=== PATIENT | male | born 1985 | race Caucasian/White ===

== ENCOUNTER 2022-01-13 23:34 | Outpatient (CLI) | payer SELFPAY | END 2022-01-13 23:35 | disposition critical access hospital (66) | LOC: EMS 23:34 | DX: R11.10 Vomiting, unspecified (principal); R45.1 Restlessness and agitation | CPT/HCPCS: A0425; A0427 ==

== ENCOUNTER 2022-01-13 23:54 | Emergency (ER) | payer SELFPAY ==
[2022-01-14] MEDS ORDERED: ONDANSETRON 4 MG/2 ML VIAL IVP STA (00:04)
[2022-01-14] MEDS ORDERED: SODIUM CHLORIDE 0.9% 1,000 ML IV STA (00:04)
[2022-01-14] MEDS ORDERED: FAMOTIDINE 20 MG/2 ML VIAL IVP STA (00:04)
[2022-01-14] MEDS ORDERED: BUPRENORPHINE 0.3 MG/ML VIAL IVP ONE ×2 (00:04→00:38)
--- NOTE | 2022-01-14 00:09 | ED Physician Documentation ---
PD HPI NVD - Stated complaint Stated Complaint: VOMITING/NAUSEA, ANXIETY S/P DETOXING - Chief complaint Chief Complaint: General - History obtained from History obtained from: Patient, EMS, Caregiver (detox center) - History of Present Illness Timing - onset: Yesterday Timing - duration: Days (04/30) Timing - details: Gradual onset, Still present Associated symptoms: Abdominal pain (cramping upper abdomen), Loss of appetite. No: Fever, Chest pain, Near syncope / syncope Contributing factors: Other (fentanyl addiction and is at [facility] for detox. Arrived yesterday and had nuasea and vomiting that has persisted despite attempts at PO meds. Was taking suboxone 8mg films BID. Missed those due to vomi ting yesterday. Last Fentanyl use was Saturday AM.). No: Sick contact, Bad food, Alcohol use Improved by: No: Vomiting Worsened by: Eating Recently seen: Clinic (intake at [facility] yesterday (Saturday) and been there the past 1 1/2 days.) Review of Systems Constitutional: denies: Fever, Chills Cardiac: denies: Chest pain / pressure Respiratory: denies: Dyspnea, Cough GI: reports: Nausea, Vomiting. denies: Abdominal Pain, Diarrhea Musculoskeletal: denies: Neck pain, Back pain Neurologic: denies: Generalized weakness, Near syncope, Headache PD PAST MEDICAL HISTORY - Past Medical History Cardiovascular: None Respiratory: None Endocrine/Autoimmune: None - Present Medications Home Medications: Ambulatory Orders Medication Instructions Recorded Confirmed Benzocaine [Hurricaine] 1 each MM QID 01/14/22 01/14/22 Buprenorphine HCl/Naloxone HCl 1 each SL DAILY 01/14/22 01/14/22 [Buprenorphine-Nalox 8-2Mg Film] Clonidine HCl [Clonidine HCl ER] 0.1 mg PO Q4HR 01/14/22 01/14/22 Dicyclomine [Bentyl] 10 mg PO QID 01/14/22 01/14/22 Gabapentin [Neurontin] 300 mg PO TID 01/14/22 01/14/22 Lorazepam [Ativan] 2 mg PO PRN PRN 01/14/22 01/14/22 Naloxone HCl [Narcan] 4 mg NS PRN PRN 01/14/22 01/14/22 Ondansetron HCl 4 mg PO PRN PRN 01/14/22 01/14/22 Promethazine [Phenergan] 12.5 tab PO PRN PRN 01/14/22 01/14/22 hydrOXYzine HCL [Hydroxyzine HCl] 50 mg PO Q6HR 01/14/22 01/14/22 methocarbamoL [Methocarbamol] 750 mg PO Q6HR 01/14/22 01/14/22 traZODone [Desyrel] 50 mg PO PRN PRN 01/14/22 01/14/22 - Allergies Allergies/Adverse Reactions: Allergies Allergy/AdvReac Type Severity Reaction Status Date / Time No Known Drug Allergies Allergy Verified 01/14/22 00:02 - Living Situation Living Arrangement: reports: At home - Social History Does the pt smoke?: Yes Does the pt have substance abuse?: Yes Substance Use and Type: Other (fentanyl) PD ED PE NORMAL - Vitals Vital signs reviewed: Yes - General General: Alert and oriented X 3, Well developed/nourished, Other (tremorous, conversant, appears dryheaving. ) - HEENT HEENT: Pharynx benign. No: Moist mucous membranes - Neck Neck: Supple, no meningeal sign, No adenopathy - Cardiac Cardiac: RRR, No murmur - Respiratory Respiratory: Clear bilaterally - Abdomen Abdomen: Soft, Non distended, No organomegaly, Other (mild tender wthout guarding in epigastric area). No: Normal bowel sounds (somewhat hyperactive) - Male Male : Deferred - Rectal Rectal: Deferred - Back Back: No spinal TTP - Derm Derm: Warm and dry. No: Normal color (mildly pale) - Extremities Extremities: No deformity, No tenderness to palpate - Neuro Neuro: Alert and oriented X 3, No motor deficit, Normal speech Eye Opening: Spontaneous Motor: Obeys Commands Verbal: Confused GCS Score: 14 Results - Vitals Vitals: Vital Signs - 24 hr 01/13/22 01/14/22 01/14/22 23:59 02:01 03:02 Temperature 37.3 C Heart Rate 95 75 76 Respiratory 18 18 16 Rate Blood Pressure 127/107 H 108/91 H 118/74 O2 Saturation 97 100 100 01/14/22 01/14/22 04:28 05:20 Temperature 37 C Heart Rate 86 63 Respiratory 18 16 Rate Blood Pressure 109/69 112/63 O2 Saturation 98 98 Oxygen O2 Source Room air - Labs Labs: Laboratory Tests 01/14/22 01/14/22 00:10 00:10 WBC 11.2 H RBC 4.27 L Hgb 13.0 L Hct 37.0 L MCV 86.7 MCH 30.4 MCHC 35.1 RDW 11.3 L Plt Count 218 MPV 9.0 Neut # (Auto) 9.5 H Lymph # (Auto) 1.1 L [place] # (Auto) 0.4 Eos # (Auto) 0.0 Baso # (Auto) 0.0 Absolute Nucleated RBC 0.00 Nucleated RBC % 0.0 Sodium 136 Potassium 3.4 L Chloride 103 Carbon Dioxide 23 Anion Gap 10.0 BUN 19 Creatinine 0.8 Estimated GFR (MDRD) 110 Glucose 123 H Calcium 8.7 Magnesium 1.8 Total Bilirubin 0.6 AST 21 ALT 17 Alkaline Phosphatase 45 Total Protein 6.3 L Albumin 3.9 Globulin 2.4 Albumin/Globulin Ratio 1.6 Lipase 29 Ethyl Alcohol < 5.0 PD MEDICAL DECISION MAKING - ED course Complexity details: re-evaluated patient (feeling improved with IV Zofran and buprenorphine x 2. Famotidine also given. ), considered differential (repetitive vomiting, having fentanyl withdrawal and presume gastritis. Can give meds and IV fluids. ), d/w patient ED course: He was able to relax and rest and sleep. At this point the detox center was able to take him back but not right away being in middle the night; they would send a ride in next 1-2 hours. The patient remained stable here, not vomiting and is comfortable. He is not having any vomiting here. No tremorous. Departure - Departure Disposition: 01 Home, Self Care Clinical Impression: Intractable vomiting with nausea, Dehydration, Fentanyl use disorder, moderate, dependence, Opioid withdrawal Condition: Stable Record reviewed to determine appropriate education?: Yes Comments: Return to the [facility] detox treatment center for resuming your treatment. Discharge Date/Time: 01/14/22 05:20
[2022-01-14 00:17] LABS: BASOPHILS % (AUTO) 0.4 %; EOSINOPHILS % (AUTO) 0.1 %; LYMPHOCYTES # (AUTO) 1.1 10^3/uL (1.5-3.5); LYMPHOCYTES % (AUTO) 10.2 %; MEAN CORPUSCULAR HEMOGLOBIN 30.4 pg (27.0-31.0); MEAN CORPUSCULAR HGB CONC 35.1 g/dL (32.0-36.0); MEAN CORPUSCULAR VOLUME 86.7 fL (80.0-94.0); MONOCYTES # (AUTO) 0.4 10^3/uL (0.0-1.0); MONOCYTES % (AUTO) 3.5 %; NEUTROPHILS # (AUTO) 9.5 10^3/uL (1.5-6.6); NEUTROPHILS % (AUTO) 85.4 %; PLT - PLATELET COUNT 218 10^3/uL (130-450); RED BLOOD COUNT 4.27 10^6/uL (4.70-6.10); RED CELL DISTRIBUTION WIDTH 11.3 % (12.0-15.0); WHITE BLOOD COUNT 11.2 x10^3/uL (4.8-10.8)
[2022-01-14 00:27] LABS: ALBUMIN 3.9 g/dL (3.2-5.5); ALBUMIN/GLOBULIN RATIO 1.6 (1.0-2.2); ALKALINE PHOSPHATASE 45 IU/L (42-121); ALT ALANINE AMINOTRANSFERASE 17 IU/L (10-60); AST ASPARTATE AMINOTRANSFERASE 21 IU/L (10-42); BILIRUBIN,TOTAL 0.6 mg/dL (0.2-1.0); BUN - BLOOD UREA NITROGEN 19 mg/dL (6-20); CALCIUM 8.7 mg/dL (8.5-10.3); CARBON DIOXIDE - CO2 23 mmol/L (21-32); CHLORIDE 103 mmol/L (101-111); CREATININE 0.8 mg/dL (0.6-1.2); ETOH - ETHANOL < 5.0 mg/dL; GFR - MDRD 110 (>89); GLUCOSE 123 mg/dL (70-100); LIPASE 29 U/L (22-51); MAGNESIUM 1.8 mg/dL (1.7-2.8); POTASSIUM 3.4 mmol/L (3.5-5.0); SODIUM 136 mmol/L (135-145); TOTAL PROTEIN 6.3 g/dL (6.7-8.2)
[2022-01-14] MEDS ORDERED: diphenhydrAMINE INJ 50 MG/ML VIAL IVP STA (00:38)
[2022-01-14] MEDS ORDERED: LACTATED RINGERS 1,000 ML IV STA (00:49)
[2022-01-14 05:21] VITALS: BP 112/63
== END 2022-01-14 05:20 | disposition home or self-care (01) ==
LOC: ED 23:54
DX: R11.2 Nausea with vomiting, unspecified (principal); E86.0 Dehydration; F11.23 Opioid dependence with withdrawal; F17.200 Nicotine dependence, unspecified, uncomplicated
CPT/HCPCS: 36415; 80053; 80320; 83690; 83735; 85025; 96361; 96374; 96375; 99284; 99285; J0592; J1200; J7120

== ENCOUNTER 2023-01-10 12:23 | Outpatient (CLI) | payer MEDICAID | END 2023-01-10 12:24 | disposition critical access hospital (66) | LOC: EMS 12:23 | DX: R11.2 Nausea with vomiting, unspecified (principal) | CPT/HCPCS: A0425; A0429; A0999 ==

== ENCOUNTER 2023-01-10 12:49 | Emergency (ER) | payer MEDICAID, OTHER ==
[2023-01-10] MEDS ORDERED: SODIUM CHLORIDE 0.9% 1,000 ML IV STA (12:58)
[2023-01-10] MEDS ORDERED: PROCHLORPERAZINE 10 MG/2 ML VIAL IVP STA (12:58)
[2023-01-10] MEDS ORDERED: BUPRENORPHINE 0.3 MG/ML VIAL IVP ONE (12:59)
--- NOTE | 2023-01-10 13:05 | ED Physician Documentation ---
History of Present Illness - Stated complaint Stated Complaint: N/V - Chief complaint Chief Complaint: Abd Pain - Additonal information Additional information: 37-year-old male presents emergency department via EMS from the local detox facility [facility]. He has been there now for 48 hours for detox from fentanyl. He is being prescribed Suboxone 8 mg 3 times a day. He has been taking Zofran but despite this continues to have nausea and vomiting. No fevers. Denies abdominal pain. Did have a similar visit about 1 year ago. Patient does desire to return to [facility]. Calm and cooperative. Review of Systems Constitutional: denies: Fever, Chills Throat: reports: Reviewed and negative Cardiac: reports: Reviewed and negative Respiratory: reports: Reviewed and negative GI: reports: Nausea, Vomiting. denies: Abdominal Pain Musculoskeletal: reports: Reviewed and negative Neurologic: reports: Reviewed and negative PD PAST MEDICAL HISTORY - Past Medical History Cardiovascular: None Respiratory: None Endocrine/Autoimmune: None Psych: Other - Past Surgical History Past Surgical History: No - Present Medications Home Medications: Ambulatory Orders Medication Instructions Recorded Confirmed Benzocaine [Hurricaine] 1 each MM QID 01/14/22 01/14/22 Buprenorphine HCl/Naloxone HCl 1 each SL DAILY 01/14/22 01/14/22 [Buprenorphine-Nalox 8-2Mg Film] Dicyclomine [Bentyl] 10 mg PO QID 01/14/22 01/14/22 Gabapentin [Neurontin] 300 mg PO TID 01/14/22 01/14/22 Lorazepam [Ativan] 2 mg PO PRN PRN 01/14/22 01/14/22 Naloxone HCl [Narcan] 4 mg NS PRN PRN 01/14/22 01/14/22 Ondansetron HCl 4 mg PO PRN PRN 01/14/22 01/14/22 Promethazine [Phenergan] 12.5 tab PO PRN PRN 01/14/22 01/14/22 cloNIDine HCL [Clonidine HCl ER] 0.1 mg PO Q4HR 01/14/22 01/14/22 hydrOXYzine HCL [Hydroxyzine HCl] 50 mg PO Q6HR 01/14/22 01/14/22 methocarbamoL [Methocarbamol] 750 mg PO Q6HR 01/14/22 01/14/22 traZODone [Desyrel] 50 mg PO PRN PRN 01/14/22 01/14/22 - Allergies Allergies/Adverse Reactions: Allergies Allergy/AdvReac Type Severity Reaction Status Date / Time No Known Drug Allergies Allergy Verified 01/10/23 12:54 - Social History Does the pt smoke?: Yes Smoking Status: Current every day smoker Does the pt drink ETOH?: No Does the pt have substance abuse?: Yes - POLST Patient has POLST: No PD ED PE NORMAL - General General: Alert and oriented X 3, No acute distress, Well developed/nourished - HEENT HEENT: Atraumatic - Neck Neck: Supple, no meningeal sign, No adenopathy - Cardiac Cardiac: RRR, No murmur - Respiratory Respiratory: No respiratory distress, Clear bilaterally - Abdomen Abdomen: Normal bowel sounds, Soft, Non tender - Back Back: No CVA TTP - Derm Derm: Normal color, Warm and dry - Extremities Extremities: No deformity - Neuro Neuro: Alert and oriented X 3, detacker 2-12 intact Eye Opening: Spontaneous Motor: Obeys Commands Verbal: Oriented GCS Score: 15 Results - Vitals Vitals: Vital Signs - 24 hr 01/10/23 12:54 Temperature 37.1 C Heart Rate 90 Respiratory 16 Rate Blood Pressure 130/80 O2 Saturation 99 Oxygen O2 Source Room air - Labs Labs: Laboratory Tests 01/10/23 01/10/23 13:06 13:06 WBC 13.8 H RBC 5.48 Hgb 16.3 Hct 47.2 MCV 86.1 MCH 29.7 MCHC 34.5 RDW 11.9 L Plt Count 277 MPV 9.8 Neut # (Auto) 11.0 H Lymph # (Auto) 1.3 L [place] # (Auto) 1.4 H Eos # (Auto) 0.0 Baso # (Auto) 0.0 Absolute Nucleated RBC 0.00 Nucleated RBC % 0.0 Sodium 135 Potassium 3.3 L Chloride 91 L Carbon Dioxide 34 H Anion Gap 10.0 BUN 27 H Creatinine 0.9 Estimated GFR (MDRD) 95 Glucose 149 H Calcium 10.7 H Total Bilirubin 0.6 AST 17 ALT 16 Alkaline Phosphatase 56 Total Protein 8.0 Albumin 5.4 Globulin 2.6 Albumin/Globulin Ratio 2.1 Lipase 38 PD Medical Decision Making - ED course Complexity details: reviewed results, d/w patient ED course: 37-year-old male was referred to the emergency department from [facility] detox facility for evaluation of uncontrolled nausea and vomiting. Has been there now for 48 hours. Has a history of fentanyl abuse. He was receiving Suboxone 8 mg 3 times a day but continued to have vomiting despite Zofran. Here in the emergency department he was alert and well-appearing. He had no worrisome vital sign abnormalities. Cardiopulmonary exam and abdominal exam were all benign. We did obtain CBC and electrolytes. Per my interpretation mild leukocytosis white count of nearly 14,000. Given the lack of fevers or abdominal pain I think this is likely a stress marginalization. His serum chemistry shows some mild derangement with a potassium of 3.3 as well as a low chloride of 91. This likely due to the vomiting. I did replete his potassium here in the emergency department with 50 mill equivalents. BUN was mildly elevated at 27 and creatinine 0.9. He did receive a liter of IV fluids. His glucose is 149. Given the lack of abdominal pain or fevers I did not feel that advanced imaging was warranted as clinically he does not have a peritoneal or surgical abdomen. Here in the emergency department he received a liter of IV fluids, Compazine and 0.3 mg of buponephrine. On reevaluation his nausea and vomiting has abated. He is now tolerating sips of clear liquids and crackers and feels ready for discharge back to [facility]. Departure - Departure Disposition: 01 Home, Self Care Clinical Impression: Mild fentanyl abuse in early remission, Hypokalemia Nausea and vomiting Qualifiers: Vomiting type: unspecified Qualified Code(s): R11.2 - Nausea with vomiting, unspecified Condition: Stable Record reviewed to determine appropriate education?: Yes Comments: Taras pritchard are seen today in the emergency department for uncontrolled nausea and vomiting since entering detox at [facility]. This is likely side effect of your detox and withdrawals. Here in the emergency department your labs showed mildly low potassium and c hloride this is due to the vomiting. We did give you extra potassium here. We also gave you some IV fluids, Compazine and nausea medicine, and some buprenorphine to help with withdrawal. On reevaluation you are feeling better and now able to eat and drink. You are stable to be returned to [facility] detox. I wish you well in your recovery. Forms: PCP List
[2023-01-10 13:20] LABS: BASOPHILS % (AUTO) 0.1 %; HCT - HEMATOCRIT 47.2 % (42.0-52.0); HGB - HEMOGLOBIN 16.3 g/dL (14.0-18.0); LYMPHOCYTES # (AUTO) 1.3 10^3/uL (1.5-3.5); LYMPHOCYTES % (AUTO) 9.4 %; MEAN CORPUSCULAR HEMOGLOBIN 29.7 pg (27.0-31.0); MEAN CORPUSCULAR HGB CONC 34.5 g/dL (32.0-36.0); MEAN CORPUSCULAR VOLUME 86.1 fL (80.0-94.0); MEAN PLATELET VOLUME 9.8 fL (7.4-11.4); MONOCYTES # (AUTO) 1.4 10^3/uL (0.0-1.0); MONOCYTES % (AUTO) 10.2 %; PLT - PLATELET COUNT 277 10^3/uL (130-450); RED BLOOD COUNT 5.48 10^6/uL (4.70-6.10); RED CELL DISTRIBUTION WIDTH 11.9 % (12.0-15.0); WHITE BLOOD COUNT 13.8 x10^3/uL (4.8-10.8)
[2023-01-10 13:40] LABS: ALBUMIN 5.4 g/dL (3.2-5.5); ALBUMIN/GLOBULIN RATIO 2.1 (1.0-2.2); BILIRUBIN,TOTAL 0.6 mg/dL (0.2-1.0); CALCIUM 10.7 mg/dL (8.5-10.3); CREATININE 0.9 mg/dL (0.6-1.3); POTASSIUM 3.3 mmol/L (3.5-4.5)
[2023-01-10] MEDS ORDERED: POTASSIUM BICARB 25 MEQ TABLET PO STA (13:48)
[2023-01-10 15:11] VITALS: BP 125/78; O2SAT 97
== END 2023-01-10 15:35 | disposition home or self-care (01) ==
LOC: EDUNIT# → ED 12:49
DX: F11.21 Opioid dependence, in remission (principal); E87.6 Hypokalemia; F17.200 Nicotine dependence, unspecified, uncomplicated
CPT/HCPCS: 36415; 80053; 83690; 85025; 96361; 96374; 96375; 99283; 99284; J0592